=== PATIENT | female | born 1995 | race Caucasian/White ===

== ENCOUNTER 2022-11-21 07:58 | Day surgery (SDC) | payer OTHER ==
[~2022-11-21] VITALS: Ht 160 cm; Wt 68.0 kg
[2022-11-21] MEDS ORDERED: fentaNYL citrate 0.05 MG/ML VIAL ONE (10:13)
[2022-11-21] MEDS ORDERED: MIDAZOLAM 2 MG/2 ML VIAL ONE (10:13)
[2022-11-21] MEDS ORDERED: MIDAZOLAM 2 MG/2 ML VIAL IVP ONE (10:40)
== END 2022-11-21 11:26 | disposition home or self-care (01) ==
LOC: MDS 07:58 → MMU 07:58 → MDS 11:26
PROVIDERS: ATTEND Internal Medicine Gastroenterology
DX: R10.13 Epigastric pain (principal); K21.00 Gastro-esophageal reflux disease with esophagitis, without bleeding; J45.909 Unspecified asthma, uncomplicated; Z79.899 Other long term (current) drug therapy; Z20.822 Contact with and (suspected) exposure to COVID-19
CPT/HCPCS: 36415; 43239; 86677; 87426; J2250; J3010